=== PATIENT | female | born 1935 | race Caucasian/White ===

== ENCOUNTER 2022-04-01 13:34 | Inpatient (IN) | payer MEDICAID ==
[~2022-04-01] VITALS: Ht 167.6 cm; Wt 101.6 kg
[2022-04-01 13:46] VITALS: BP_SYST 142
[2022-04-01 15:28] LABS: BASOPHILS % (AUTO) 0.1 % (0.0-2.0); HEMATOCRIT 41.7 % (36-48); HEMOGLOBIN 14.1 g/dL (12.0-16.0); LYMPHOCYTES # (AUTO) 1.3 K/uL (1.0-5.5); LYMPHOCYTES % (AUTO) 5.3 % (20.5-51.5); MEAN CORPUSCULAR HEMOGLOBIN 32 pg (27-31); MEAN CORPUSCULAR HGB CONC 34 % (32-36); MEAN CORPUSCULAR VOLUME 94 fL (79.0-98.0); MONOCYTES # (AUTO) 0.8 K/uL (0.0-1.0); MONOCYTES % (AUTO) 3.4 % (1.7-9.3); NEUTROPHILS # (AUTO) 22.7 K/uL (1.8-7.7); NEUTROPHILS % (AUTO) 91.2 % (40.0-70.0); PLATELET COUNT (AUTO) 227 K/uL (130-430); RED BLOOD CELL COUNT(AUTO) 4.45 MIL/uL (4.2-6.2); RED CELL DISTRIBUTION WIDTH 15.7 % (9.0-15.0)
[2022-04-01 15:32] LABS: WHITE BLOOD COUNT (AUTO) 24.9 K/uL (4.8-10.8)
[2022-04-01 15:35] LABS: ANION GAP 12 (5-15); CALCIUM 9.3 mg/dL (8.4-11.0); CHLORIDE 105 mmol/L (98-107); GLUCOSE 167 mg/dL (70-99); UREA NITROGEN, BLOOD 28 mg/dL (8-21)
[2022-04-01 15:39] LABS: ALANINE AMINOTRANSFERASE 31 U/L (12-78); ALBUMIN 2.7 g/dL (3.4-4.8); ASPARTATE AMINOTRANSFERASE 21 U/L (10-37); LIPASE 33 U/L (73-393); TOTAL BILIRUBIN 1.1 mg/dL (0.0-1.0)
[2022-04-01] MEDS ORDERED: PIPERACILLIN/TAZO 3.375 GM in NS 50 ML IV ONE (16:15)
[2022-04-01] MEDS ORDERED: NACL 0.9% 1,000 ML IV ONE ×2 (16:15)
[2022-04-01] MEDS ORDERED: PIPERACILLIN/TAZOBACTAM 3.375 GM/VIAL (ZOSYN) IV ONE (16:25)
[2022-04-01] MEDS ORDERED: QUET50TA PO (16:49)
[2022-04-01] MEDS ORDERED: MELO-89 PO (16:49)
[2022-04-01] MEDS ORDERED: THIA50TA10 PO (16:49)
[2022-04-01] MEDS ORDERED: MEGE400O4 PO (16:49)
[2022-04-01] MEDS ORDERED: LEVO25TA2 PO (16:49)
[2022-04-01] MEDS ORDERED: CYAN100T44 PO (16:49)
[2022-04-01] MEDS ORDERED: SER25 PO (16:49)
[2022-04-01] MEDS ORDERED: LOSA50TA3 PO (16:49)
[2022-04-01] MEDS ORDERED: ALEN10TA25 PO (16:49)
[2022-04-01] MEDS ORDERED: DOCU-144 PO (16:49)
[2022-04-01 17:03] LABS: BILIRUBIN,URINE 2+ (NEGATIVE); BLOOD, URINE NEGATIVE (NEGATIVE); GLUCOSE,URINE TRACE (NEGATIVE); KETONES,URINE NEGATIVE (NEGATIVE); LEUKOCYTE ESTERASE ,URINE TRACE (NEGATIVE); PROTEIN URINE 1+ (NEGATIVE)
[2022-04-01 17:16] LABS: CLARITY/URINE HAZY (CLEAR); COLOR,URINE AMBER (YELLOW); NITRITE, URINE NEGATIVE (NEGATIVE)
[2022-04-01 17:17] LABS: BACTERIA,URINE FEW /HPF (None Seen); MUCUS,URINE None Seen /LPF (None Seen); RBC,URINE 0-3 /HPF (0-3)
[2022-04-01] MEDS ORDERED: VANCOMYCIN HCL 1 GM/NS PREMIX 250 ML IV ONE (21:00)
[2022-04-01] MEDS ORDERED: VANCOMYCIN HCL 1000 MG/VIAL IV ONE (23:19)
[2022-04-01] MEDS: 0.45% NACL 1,000 ML IV SCH (23:31)
[2022-04-01 23:35] VITALS: BP_SYST 116
[2022-04-02] MEDS ORDERED: PIPERACILLIN/TAZOBACTAM 3.375 GM/VIAL (ZOSYN) IV ONE (00:58)
[2022-04-02] MEDS: PIPERACILLIN/TAZO 3.375 GM in NS 50 ML IV SCH ×3 (01:14→18:37)
[2022-04-02] MEDS ORDERED: METOPROLOL SUCCINATE 50 MG TAB.SR.24H (TOPROL XL) PO ONE (02:00)
[2022-04-02] MEDS: METOPROLOL TARTRATE 5 MG/5 ML VIAL IVP PRN ×2 (03:27→09:21)
[2022-04-02] MEDS: MORPHINE 2 MG/ML INJ. SYRINGE IVP PRN ×2 (03:27→10:14)
[2022-04-02] MEDS: 0.45% NACL 1,000 ML IV SCH ×3 (03:45→19:45)
[2022-04-02 08:13] VITALS: BP_SYST 134
[2022-04-02 08:30] LABS: EOSINOPHILS % (AUTO) 0.1 % (0.0-4.0); HEMATOCRIT 38.7 % (36-48); LYMPHOCYTES # (AUTO) 1.4 K/uL (1.0-5.5); LYMPHOCYTES % (AUTO) 7.6 % (20.5-51.5); MEAN CORPUSCULAR HEMOGLOBIN 31 pg (27-31); MEAN CORPUSCULAR HGB CONC 34 % (32-36); MEAN CORPUSCULAR VOLUME 93 fL (79.0-98.0); MONOCYTES # (AUTO) 0.7 K/uL (0.0-1.0); MONOCYTES % (AUTO) 3.8 % (1.7-9.3); NEUTROPHILS # (AUTO) 16.3 K/uL (1.8-7.7); NEUTROPHILS % (AUTO) 88.5 % (40.0-70.0); PLATELET COUNT (AUTO) 201 K/uL (130-430); RED BLOOD CELL COUNT(AUTO) 4.16 MIL/uL (4.2-6.2); RED CELL DISTRIBUTION WIDTH 15.6 % (9.0-15.0); WHITE BLOOD COUNT (AUTO) 18.4 K/uL (4.8-10.8)
[2022-04-02 09:34] LABS: ALANINE AMINOTRANSFERASE 25 U/L (12-78); ALBUMIN 2.2 g/dL (3.4-4.8); ANION GAP 12 (5-15); ASPARTATE AMINOTRANSFERASE 18 U/L (10-37); CALCIUM 8.8 mg/dL (8.4-11.0); CHLORIDE 108 mmol/L (98-107); CREATININE 0.83 mg/dL (0.55-1.30); GLUCOSE 153 mg/dL (70-99); TOTAL BILIRUBIN 1.2 mg/dL (0.0-1.0); UREA NITROGEN, BLOOD 26 mg/dL (8-21)
[2022-04-02] MEDS ORDERED: THIAMINE HCL 100 MG TABLET PO ONE (09:45)
[2022-04-02] MEDS ORDERED: DOCUSATE SODIUM 100 MG CAPSULE PO ONE (09:45)
[2022-04-02] MEDS ORDERED: LEVOTHYROXINE SODIUM 0.025 MG TABLET PO ONE (09:45)
[2022-04-02] MEDS ORDERED: QUEtiapine FUMARATE 25 MG TABLET PO ONE (09:45)
[2022-04-02] MEDS ORDERED: METOPROLOL TARTRATE 25 MG TABLET PO ONE (10:00)
[2022-04-02] MEDS ORDERED: HEPARIN SODIUM,PORCINE 5,000 UNITS/ML VIAL SUBCUT ONE (10:00)
[2022-04-02] MEDS ORDERED: MELOXICAM 7.5 MG TABLET PO ONE (11:30)
[2022-04-02] MEDS ORDERED: LOSARTAN POTASSIUM 50 MG TABLET (COZAAR) PO ONE (11:30)
[2022-04-02 11:34] VITALS: BP_SYST 103
[2022-04-02 11:52] LABS: INR 1.3 (0.8-1.2); PROTHROMBIN TIME 12.7 SECS (9.5-12.5)
[2022-04-02] MEDS ORDERED: POTASSIUM CHLORIDE 20 MEQ/PKT PACKET PO ONE (13:30)
[2022-04-02 16:56] VITALS: BP_SYST 105
[2022-04-02 20:00] VITALS: BP_SYST 124
[2022-04-02] MEDS: DOCUSATE SODIUM 100 MG CAPSULE PO SCH (21:09)
[2022-04-02] MEDS: METOPROLOL TARTRATE 25 MG TABLET PO SCH (21:09)
[2022-04-02] MEDS: QUEtiapine FUMARATE 25 MG TABLET PO SCH (21:10)
[2022-04-02] MEDS: HEPARIN SODIUM,PORCINE 5,000 UNITS/ML VIAL SUBCUT SCH (21:14)
[2022-04-03] MEDS: PIPERACILLIN/TAZO 3.375 GM in NS 50 ML IV SCH ×3 (01:14→17:24)
[2022-04-03 01:35] VITALS: BP_SYST 105
[2022-04-03] MEDS: VANCOMYCIN HCL 1,250 MG in NS 250 ML IV SCH ×2 (01:52→23:39)
[2022-04-03] MEDS: 0.45% NACL 1,000 ML IV SCH ×3 (04:09→21:55)
[2022-04-03] MEDS: FOSAMAX 70 MG PO SCH (06:00)
[2022-04-03 06:26] LABS: BASOPHILS % (AUTO) 0.1 % (0.0-2.0); EOSINOPHILS # (AUTO) 0.1 K/uL (0.0-0.4); EOSINOPHILS % (AUTO) 1.1 % (0.0-4.0); HEMATOCRIT 36.2 % (36-48); HEMOGLOBIN 12.4 g/dL (12.0-16.0); LYMPHOCYTES # (AUTO) 1.2 K/uL (1.0-5.5); LYMPHOCYTES % (AUTO) 12.2 % (20.5-51.5); MEAN CORPUSCULAR HEMOGLOBIN 32 pg (27-31); MEAN CORPUSCULAR HGB CONC 34 % (32-36); MEAN CORPUSCULAR VOLUME 92 fL (79.0-98.0); MONOCYTES # (AUTO) 0.6 K/uL (0.0-1.0); MONOCYTES % (AUTO) 6.5 % (1.7-9.3); NEUTROPHILS # (AUTO) 7.9 K/uL (1.8-7.7); NEUTROPHILS % (AUTO) 80.1 % (40.0-70.0); PLATELET COUNT (AUTO) 173 K/uL (130-430); RED BLOOD CELL COUNT(AUTO) 3.92 MIL/uL (4.2-6.2); RED CELL DISTRIBUTION WIDTH 15.2 % (9.0-15.0); WHITE BLOOD COUNT (AUTO) 9.9 K/uL (4.8-10.8)
[2022-04-03] MEDS: LEVOTHYROXINE SODIUM 0.025 MG TABLET PO SCH (06:28)
[2022-04-03 06:29] LABS: ALANINE AMINOTRANSFERASE 19 U/L (12-78); ALBUMIN 1.9 g/dL (3.4-4.8); ANION GAP 11 (5-15); ASPARTATE AMINOTRANSFERASE 17 U/L (10-37); CALCIUM 8.5 mg/dL (8.4-11.0); CHLORIDE 109 mmol/L (98-107); CHOLESTEROL 87 mg/dL (<200); CREATININE 0.75 mg/dL (0.55-1.30); GLUCOSE 133 mg/dL (70-99); HDL CHOLESTEROL 25 mg/dL (>55); THYROID STIMULATING HORMONE 1.61 uIu/mL (0.34-4.82); TOTAL BILIRUBIN 0.9 mg/dL (0.0-1.0); TRIGLYCERIDES 76 mg/dL (30-150); UREA NITROGEN, BLOOD 30 mg/dL (8-21)
[2022-04-03 07:51] LABS: LIPASE 56 U/L (73-393)
[2022-04-03 08:01] VITALS: BP_SYST 115
[2022-04-03] MEDS ORDERED: KCL 40 mEq in 100 mL (PREMIX) 100 ML IV ONE (08:22)
[2022-04-03] MEDS: THIAMINE HCL 100 MG TABLET PO SCH (09:00)
[2022-04-03] MEDS: LOSARTAN POTASSIUM 50 MG TABLET (COZAAR) PO SCH (09:00)
[2022-04-03] MEDS: DOCUSATE SODIUM 100 MG CAPSULE PO SCH ×2 (09:00→22:02)
[2022-04-03] MEDS: QUEtiapine FUMARATE 25 MG TABLET PO SCH ×2 (09:00→22:03)
[2022-04-03] MEDS: METOPROLOL TARTRATE 25 MG TABLET PO SCH ×2 (09:00→22:02)
[2022-04-03] MEDS ORDERED: MELOXICAM 7.5 MG TABLET PO SCH (09:00)
[2022-04-03] MEDS: HEPARIN SODIUM,PORCINE 5,000 UNITS/ML VIAL SUBCUT SCH ×2 (09:38→22:15)
[2022-04-03 10:06] LABS: AFP, TUMOR MARKER 2.1 ng/mL (0.0-8.7); CANCER AG, 125 61.8 U/mL (0.0-38.1); CARBOHYDRATE AG 19-9 <2 U/mL (0-35)
[2022-04-03] MEDS ORDERED: LORazepam 2 MG/ML VIAL IVP ONE (11:30)
[2022-04-03 11:34] VITALS: BP_SYST 127
[2022-04-03 12:00] VITALS: BP_SYST 124
[2022-04-03 16:00] VITALS: BP_SYST 118
[2022-04-03 20:00] VITALS: BP_SYST 105; BP_SYST 131
[2022-04-04] VITALS (10 sets, daily range): BP systolic 117–167
[2022-04-04] MEDS: MORPHINE 2 MG/ML INJ. SYRINGE IVP PRN ×3 (01:48→20:16)
[2022-04-04] MEDS: PIPERACILLIN/TAZO 3.375 GM in NS 50 ML IV SCH ×3 (02:06→18:00)
[2022-04-04] MEDS: 0.45% NACL 1,000 ML IV SCH ×2 (05:21→11:45)
[2022-04-04] MEDS: LEVOTHYROXINE SODIUM 0.025 MG TABLET PO SCH (06:27)
[2022-04-04] MEDS: LOSARTAN POTASSIUM 50 MG TABLET (COZAAR) PO SCH (08:27)
[2022-04-04] MEDS: METOPROLOL TARTRATE 25 MG TABLET PO SCH ×2 (08:27→20:01)
[2022-04-04] MEDS: THIAMINE HCL 100 MG TABLET PO SCH (08:27)
[2022-04-04] MEDS: DOCUSATE SODIUM 100 MG CAPSULE PO SCH ×2 (08:28→20:00)
[2022-04-04] MEDS: QUEtiapine FUMARATE 25 MG TABLET PO SCH ×2 (08:28→20:01)
[2022-04-04] MEDS: HEPARIN SODIUM,PORCINE 5,000 UNITS/ML VIAL SUBCUT SCH ×2 (08:33→21:25)
[2022-04-04] MEDS ORDERED: IPRATROPIUM/ALBUTEROL SULFATE 3 ML AMPUL.NEB (DUONEB) INH PRN (09:00)
[2022-04-04 09:10] LABS: BASOPHILS % (AUTO) 0.4 % (0.0-2.0); EOSINOPHILS # (AUTO) 0.2 K/uL (0.0-0.4); EOSINOPHILS % (AUTO) 1.8 % (0.0-4.0); HEMATOCRIT 40.7 % (36-48); HEMOGLOBIN 13.4 g/dL (12.0-16.0); LYMPHOCYTES # (AUTO) 1.9 K/uL (1.0-5.5); LYMPHOCYTES % (AUTO) 19.3 % (20.5-51.5); MEAN CORPUSCULAR HEMOGLOBIN 31 pg (27-31); MEAN CORPUSCULAR HGB CONC 33 % (32-36); MEAN CORPUSCULAR VOLUME 95 fL (79.0-98.0); MONOCYTES # (AUTO) 0.7 K/uL (0.0-1.0); MONOCYTES % (AUTO) 7.6 % (1.7-9.3); NEUTROPHILS % (AUTO) 70.9 % (40.0-70.0); PLATELET COUNT (AUTO) 188 K/uL (130-430); RED BLOOD CELL COUNT(AUTO) 4.29 MIL/uL (4.2-6.2); RED CELL DISTRIBUTION WIDTH 15.5 % (9.0-15.0); WHITE BLOOD COUNT (AUTO) 9.9 K/uL (4.8-10.8)
[2022-04-04 09:15] LABS: ANION GAP 10 (5-15); CHLORIDE 109 mmol/L (98-107); CREATININE 0.66 mg/dL (0.55-1.30); GLUCOSE 127 mg/dL (70-99); UREA NITROGEN, BLOOD 19 mg/dL (8-21)
[2022-04-04] MEDS ORDERED: IPRATROPIUM/ALBUTEROL SULFATE 3 ML AMPUL.NEB (DUONEB) INH ONE (14:00)
[2022-04-04] MEDS ORDERED: iohexoL 350 mgI/mL, 100 ML INFUS..BTL IV ONE (14:24)
[2022-04-04] MEDS ORDERED: POTASSIUM CHLORIDE 20 MEQ TAB.PRT.SR PO ONE (15:15)
[2022-04-04] MEDS ORDERED: levalbuterol HCL 0.63 MG/3 ML VIAL.NEB INH PRN (15:15)
[2022-04-04 17:06] LABS: TOTAL BILIRUBIN 0.7 mg/dL (0.0-1.0)
[2022-04-04] MEDS ORDERED: METOPROLOL TARTRATE 5 MG/5 ML VIAL IVP PRN (17:30)
[2022-04-04] MEDS ORDERED: FUROSEMIDE 20 MG/2 ML VIAL IVP ONE (17:30)
[2022-04-04 17:35] LABS: BILIRUBIN,DIRECT 0.3 mg/dL (0.0-0.3)
[2022-04-04] MEDS ORDERED: levalbuterol HCL 0.63 MG/3 ML VIAL.NEB INH ONE (18:00)
[2022-04-04] MEDS ORDERED: IPRATROPIUM/ALBUTEROL SULFATE 3 ML AMPUL.NEB (DUONEB) INH SCH (19:00)
[2022-04-05] VITALS (24 sets, daily range): BP systolic 80–141
[2022-04-05] MEDS: levalbuterol HCL 0.63 MG/3 ML VIAL.NEB INH SCH ×3 (01:00→12:13)
[2022-04-05] MEDS: PIPERACILLIN/TAZO 3.375 GM in NS 50 ML IV SCH ×3 (01:40→17:39)
[2022-04-05] MEDS: 0.45% NACL 1,000 ML IV SCH ×2 (01:41→22:15)
[2022-04-05] MEDS: LEVOTHYROXINE SODIUM 0.025 MG TABLET PO SCH (06:23)
[2022-04-05 07:06] LABS: BASOPHILS % (AUTO) 0.5 % (0.0-2.0); EOSINOPHILS # (AUTO) 0.3 K/uL (0.0-0.4); EOSINOPHILS % (AUTO) 3.1 % (0.0-4.0); HEMOGLOBIN 12.3 g/dL (12.0-16.0); LYMPHOCYTES # (AUTO) 1.9 K/uL (1.0-5.5); LYMPHOCYTES % (AUTO) 20.1 % (20.5-51.5); MEAN CORPUSCULAR HEMOGLOBIN 31 pg (27-31); MEAN CORPUSCULAR HGB CONC 33 % (32-36); MEAN CORPUSCULAR VOLUME 94 fL (79.0-98.0); MONOCYTES # (AUTO) 0.9 K/uL (0.0-1.0); MONOCYTES % (AUTO) 9.6 % (1.7-9.3); NEUTROPHILS # (AUTO) 6.1 K/uL (1.8-7.7); NEUTROPHILS % (AUTO) 66.7 % (40.0-70.0); PLATELET COUNT (AUTO) 227 K/uL (130-430); RED BLOOD CELL COUNT(AUTO) 3.94 MIL/uL (4.2-6.2); RED CELL DISTRIBUTION WIDTH 15.4 % (9.0-15.0); WHITE BLOOD COUNT (AUTO) 9.2 K/uL (4.8-10.8)
[2022-04-05 08:15] LABS: ALANINE AMINOTRANSFERASE 22 U/L (12-78); ANION GAP 9 (5-15); ASPARTATE AMINOTRANSFERASE 18 U/L (10-37); CHLORIDE 110 mmol/L (98-107); CREATININE 0.62 mg/dL (0.55-1.30); GLUCOSE 141 mg/dL (70-99); TOTAL BILIRUBIN 0.6 mg/dL (0.0-1.0); UREA NITROGEN, BLOOD 16 mg/dL (8-21)
[2022-04-05] MEDS ORDERED: FUROSEMIDE 20 MG/2 ML VIAL IVP ONE (08:45)
[2022-04-05] MEDS ORDERED: METOPROLOL TARTRATE 25 MG TABLET PO ONE (09:00)
[2022-04-05] MEDS: HEPARIN SODIUM,PORCINE 5,000 UNITS/ML VIAL SUBCUT SCH ×2 (09:00→22:06)
[2022-04-05] MEDS: QUEtiapine FUMARATE 25 MG TABLET PO SCH ×2 (09:07→22:05)
[2022-04-05] MEDS: THIAMINE HCL 100 MG TABLET PO SCH (09:07)
[2022-04-05] MEDS: LOSARTAN POTASSIUM 50 MG TABLET (COZAAR) PO SCH (09:07)
[2022-04-05] MEDS: DOCUSATE SODIUM 100 MG CAPSULE PO SCH ×2 (09:07→22:05)
[2022-04-05] MEDS: METOPROLOL TARTRATE 25 MG TABLET PO SCH (22:04)
[2022-04-06] VITALS (20 sets, daily range): BP systolic 98–162
[2022-04-06] MEDS: levalbuterol HCL 0.63 MG/3 ML VIAL.NEB INH SCH ×4 (00:16→19:00)
[2022-04-06] MEDS: PIPERACILLIN/TAZO 3.375 GM in NS 50 ML IV SCH ×3 (03:07→20:10)
[2022-04-06] MEDS: LEVOTHYROXINE SODIUM 0.088 MG TABLET PO SCH (07:36)
[2022-04-06 08:01] LABS: BASOPHILS # (AUTO) 0.1 K/uL (0.0-0.2); BASOPHILS % (AUTO) 1.1 % (0.0-2.0); EOSINOPHILS # (AUTO) 0.3 K/uL (0.0-0.4); EOSINOPHILS % (AUTO) 2.4 % (0.0-4.0); HEMOGLOBIN 13.1 g/dL (12.0-16.0); LYMPHOCYTES # (AUTO) 3.2 K/uL (1.0-5.5); LYMPHOCYTES % (AUTO) 28.4 % (20.5-51.5); MEAN CORPUSCULAR HEMOGLOBIN 33 pg (27-31); MEAN CORPUSCULAR HGB CONC 35 % (32-36); MEAN CORPUSCULAR VOLUME 94 fL (79.0-98.0); MONOCYTES # (AUTO) 0.9 K/uL (0.0-1.0); MONOCYTES % (AUTO) 7.5 % (1.7-9.3); NEUTROPHILS # (AUTO) 6.9 K/uL (1.8-7.7); NEUTROPHILS % (AUTO) 60.6 % (40.0-70.0); PLATELET COUNT (AUTO) 274 K/uL (130-430); RED BLOOD CELL COUNT(AUTO) 4.04 MIL/uL (4.2-6.2); RED CELL DISTRIBUTION WIDTH 15.8 % (9.0-15.0); WHITE BLOOD COUNT (AUTO) 11.4 K/uL (4.8-10.8)
[2022-04-06] MEDS: QUEtiapine FUMARATE 25 MG TABLET PO SCH ×3 (09:00→20:31)
[2022-04-06] MEDS: LOSARTAN POTASSIUM 50 MG TABLET (COZAAR) PO SCH ×2 (09:00→09:37)
[2022-04-06] MEDS: HEPARIN SODIUM,PORCINE 5,000 UNITS/ML VIAL SUBCUT SCH ×3 (09:00→20:32)
[2022-04-06] MEDS: THIAMINE HCL 100 MG TABLET PO SCH ×2 (09:00→09:37)
[2022-04-06] MEDS: DOCUSATE SODIUM 100 MG CAPSULE PO SCH ×2 (09:00→20:30)
[2022-04-06] MEDS: METOPROLOL TARTRATE 25 MG TABLET PO SCH ×3 (09:00→20:30)
[2022-04-06] MEDS ORDERED: DILTIAZEM HCL 240 MG CAP.SR.24H PO ONE (11:45)
[2022-04-06 17:24] LABS: ANION GAP 11 (5-15); CALCIUM 8.1 mg/dL (8.4-11.0); CHLORIDE 110 mmol/L (98-107); CREATININE 0.67 mg/dL (0.55-1.30); GLUCOSE 139 mg/dL (70-99); UREA NITROGEN, BLOOD 10 mg/dL (8-21)
[2022-04-06] MEDS: 0.45% NACL 1,000 ML IV SCH (20:29)
[2022-04-07] VITALS (24 sets, daily range): BP systolic 104–146
[2022-04-07] MEDS: levalbuterol HCL 0.63 MG/3 ML VIAL.NEB INH SCH ×4 (00:59→19:00)
[2022-04-07] MEDS: PIPERACILLIN/TAZO 3.375 GM in NS 50 ML IV SCH ×3 (02:23→17:42)
[2022-04-07] MEDS: LEVOTHYROXINE SODIUM 0.088 MG TABLET PO SCH (06:26)
[2022-04-07] MEDS: QUEtiapine FUMARATE 25 MG TABLET PO SCH ×2 (08:23→20:20)
[2022-04-07] MEDS: THIAMINE HCL 100 MG TABLET PO SCH (08:23)
[2022-04-07] MEDS: DILTIAZEM HCL 240 MG CAP.SR.24H PO SCH (08:23)
[2022-04-07] MEDS: METOPROLOL TARTRATE 25 MG TABLET PO SCH ×2 (08:23→20:20)
[2022-04-07] MEDS: HEPARIN SODIUM,PORCINE 5,000 UNITS/ML VIAL SUBCUT SCH ×2 (08:24→20:25)
[2022-04-07] MEDS: LOSARTAN POTASSIUM 50 MG TABLET (COZAAR) PO SCH (08:25)
[2022-04-07] MEDS: DOCUSATE SODIUM 100 MG CAPSULE PO SCH ×2 (08:25→20:20)
[2022-04-07 08:41] LABS: ANION GAP 9 (5-15); CALCIUM 8.1 mg/dL (8.4-11.0); CHLORIDE 109 mmol/L (98-107); CREATININE 0.68 mg/dL (0.55-1.30); GLUCOSE 128 mg/dL (70-99); UREA NITROGEN, BLOOD 9 mg/dL (8-21)
[2022-04-07] MEDS: 0.45% NACL 1,000 ML IV SCH (15:38)
[2022-04-07 18:23] LABS: BASOPHILS # (AUTO) 0.1 K/uL (0.0-0.2); BASOPHILS % (AUTO) 0.7 % (0.0-2.0); EOSINOPHILS # (AUTO) 0.2 K/uL (0.0-0.4); HEMATOCRIT 37.8 % (36-48); HEMOGLOBIN 12.7 g/dL (12.0-16.0); LYMPHOCYTES # (AUTO) 2.1 K/uL (1.0-5.5); LYMPHOCYTES % (AUTO) 24.1 % (20.5-51.5); MEAN CORPUSCULAR HEMOGLOBIN 32 pg (27-31); MEAN CORPUSCULAR HGB CONC 34 % (32-36); MEAN CORPUSCULAR VOLUME 95 fL (79.0-98.0); MONOCYTES # (AUTO) 0.6 K/uL (0.0-1.0); MONOCYTES % (AUTO) 6.3 % (1.7-9.3); NEUTROPHILS % (AUTO) 66.9 % (40.0-70.0); PLATELET COUNT (AUTO) 213 K/uL (130-430); RED CELL DISTRIBUTION WIDTH 15.4 % (9.0-15.0); WHITE BLOOD COUNT (AUTO) 8.9 K/uL (4.8-10.8)
[2022-04-07] MEDS: NACL 0.9% 1,000 ML IV SCH (20:21)
[2022-04-08] VITALS (23 sets, daily range): BP systolic 97–158
[2022-04-08] MEDS: PIPERACILLIN/TAZO 3.375 GM in NS 50 ML IV SCH ×3 (02:00→18:49)
[2022-04-08] MEDS: levalbuterol HCL 0.63 MG/3 ML VIAL.NEB INH SCH ×5 (03:20→23:17)
[2022-04-08] MEDS: LEVOTHYROXINE SODIUM 0.088 MG TABLET PO SCH (05:53)
[2022-04-08] MEDS: NACL 0.9% 1,000 ML IV SCH ×2 (06:15→16:15)
[2022-04-08 07:01] LABS: BASOPHILS % (AUTO) 0.6 % (0.0-2.0); EOSINOPHILS # (AUTO) 0.2 K/uL (0.0-0.4); EOSINOPHILS % (AUTO) 2.7 % (0.0-4.0); HEMATOCRIT 38.4 % (36-48); HEMOGLOBIN 13.1 g/dL (12.0-16.0); LYMPHOCYTES # (AUTO) 1.7 K/uL (1.0-5.5); LYMPHOCYTES % (AUTO) 21.1 % (20.5-51.5); MEAN CORPUSCULAR HEMOGLOBIN 32 pg (27-31); MEAN CORPUSCULAR HGB CONC 34 % (32-36); MEAN CORPUSCULAR VOLUME 94 fL (79.0-98.0); MONOCYTES # (AUTO) 0.6 K/uL (0.0-1.0); MONOCYTES % (AUTO) 7.1 % (1.7-9.3); NEUTROPHILS # (AUTO) 5.6 K/uL (1.8-7.7); NEUTROPHILS % (AUTO) 68.5 % (40.0-70.0); PLATELET COUNT (AUTO) 217 K/uL (130-430); RED BLOOD CELL COUNT(AUTO) 4.11 MIL/uL (4.2-6.2); RED CELL DISTRIBUTION WIDTH 15.2 % (9.0-15.0); WHITE BLOOD COUNT (AUTO) 8.2 K/uL (4.8-10.8)
[2022-04-08 07:56] LABS: ANION GAP 12 (5-15); CALCIUM 8.4 mg/dL (8.4-11.0); CHLORIDE 109 mmol/L (98-107); CREATININE 0.66 mg/dL (0.55-1.30); GLUCOSE 147 mg/dL (70-99); UREA NITROGEN, BLOOD 9 mg/dL (8-21)
[2022-04-08] MEDS: HEPARIN SODIUM,PORCINE 5,000 UNITS/ML VIAL SUBCUT SCH ×2 (09:00→20:09)
[2022-04-08] MEDS: DILTIAZEM HCL 240 MG CAP.SR.24H PO SCH (09:00)
[2022-04-08] MEDS: QUEtiapine FUMARATE 25 MG TABLET PO SCH ×2 (09:00→20:02)
[2022-04-08] MEDS: METOPROLOL TARTRATE 25 MG TABLET PO SCH ×2 (09:00→20:03)
[2022-04-08] MEDS: DOCUSATE SODIUM 100 MG CAPSULE PO SCH ×2 (09:00→20:02)
[2022-04-08] MEDS: THIAMINE HCL 100 MG TABLET PO SCH (09:00)
[2022-04-08] MEDS: LOSARTAN POTASSIUM 50 MG TABLET (COZAAR) PO SCH (09:00)
[2022-04-08] MEDS ORDERED: MENTHOL/ZINC OXIDE 113 GM OINT. TP PRN (17:00)
[2022-04-09] VITALS (23 sets, daily range): BP systolic 97–154
[2022-04-09] MEDS: NACL 0.9% 1,000 ML IV SCH ×2 (02:15→06:21)
[2022-04-09] MEDS: PIPERACILLIN/TAZO 3.375 GM in NS 50 ML IV SCH ×3 (02:28→18:27)
[2022-04-09] MEDS: LEVOTHYROXINE SODIUM 0.088 MG TABLET PO SCH (06:12)
[2022-04-09] MEDS: levalbuterol HCL 0.63 MG/3 ML VIAL.NEB INH SCH ×3 (07:16→19:45)
[2022-04-09] MEDS: DOCUSATE SODIUM 100 MG CAPSULE PO SCH ×2 (08:46→21:32)
[2022-04-09] MEDS: DILTIAZEM HCL 240 MG CAP.SR.24H PO SCH (08:47)
[2022-04-09] MEDS: THIAMINE HCL 100 MG TABLET PO SCH (08:48)
[2022-04-09] MEDS: METOPROLOL TARTRATE 25 MG TABLET PO SCH ×2 (08:48→21:32)
[2022-04-09] MEDS: QUEtiapine FUMARATE 25 MG TABLET PO SCH ×2 (08:48→21:40)
[2022-04-09] MEDS: LOSARTAN POTASSIUM 50 MG TABLET (COZAAR) PO SCH (08:48)
[2022-04-09] MEDS: HEPARIN SODIUM,PORCINE 5,000 UNITS/ML VIAL SUBCUT SCH ×2 (08:54→21:33)
[2022-04-10] VITALS (25 sets, daily range): BP systolic 92–150
[2022-04-10] MEDS: levalbuterol HCL 0.63 MG/3 ML VIAL.NEB INH SCH ×3 (01:00→19:00)
[2022-04-10] MEDS: PIPERACILLIN/TAZO 3.375 GM in NS 50 ML IV SCH ×3 (01:27→17:15)
[2022-04-10] MEDS: FOSAMAX 70 MG PO SCH (06:38)
[2022-04-10] MEDS: LEVOTHYROXINE SODIUM 0.088 MG TABLET PO SCH (06:54)
[2022-04-10] MEDS: DILTIAZEM HCL 240 MG CAP.SR.24H PO SCH (06:55)
[2022-04-10 07:09] LABS: BASOPHILS # (AUTO) 0.1 K/uL (0.0-0.2); BASOPHILS % (AUTO) 0.7 % (0.0-2.0); EOSINOPHILS # (AUTO) 0.2 K/uL (0.0-0.4); EOSINOPHILS % (AUTO) 2.2 % (0.0-4.0); HEMATOCRIT 35.4 % (36-48); HEMOGLOBIN 12.3 g/dL (12.0-16.0); LYMPHOCYTES # (AUTO) 1.8 K/uL (1.0-5.5); MEAN CORPUSCULAR HEMOGLOBIN 33 pg (27-31); MEAN CORPUSCULAR HGB CONC 35 % (32-36); MEAN CORPUSCULAR VOLUME 95 fL (79.0-98.0); MONOCYTES # (AUTO) 0.6 K/uL (0.0-1.0); MONOCYTES % (AUTO) 6.2 % (1.7-9.3); NEUTROPHILS # (AUTO) 7.4 K/uL (1.8-7.7); NEUTROPHILS % (AUTO) 72.9 % (40.0-70.0); PLATELET COUNT (AUTO) 222 K/uL (130-430); RED BLOOD CELL COUNT(AUTO) 3.75 MIL/uL (4.2-6.2); RED CELL DISTRIBUTION WIDTH 15.4 % (9.0-15.0); WHITE BLOOD COUNT (AUTO) 10.2 K/uL (4.8-10.8)
[2022-04-10 07:52] LABS: ANION GAP 10 (5-15); CALCIUM 8.5 mg/dL (8.4-11.0); CHLORIDE 110 mmol/L (98-107); CREATININE 0.65 mg/dL (0.55-1.30); GLUCOSE 148 mg/dL (70-99); UREA NITROGEN, BLOOD 11 mg/dL (8-21)
[2022-04-10] MEDS: DOCUSATE SODIUM 100 MG CAPSULE PO SCH ×2 (08:29→20:48)
[2022-04-10] MEDS: THIAMINE HCL 100 MG TABLET PO SCH (08:30)
[2022-04-10] MEDS: METOPROLOL TARTRATE 25 MG TABLET PO SCH ×2 (08:30→20:49)
[2022-04-10] MEDS: QUEtiapine FUMARATE 25 MG TABLET PO SCH ×2 (08:31→20:48)
[2022-04-10] MEDS: LOSARTAN POTASSIUM 50 MG TABLET (COZAAR) PO SCH (08:31)
[2022-04-10] MEDS: HEPARIN SODIUM,PORCINE 5,000 UNITS/ML VIAL SUBCUT SCH ×2 (08:34→20:52)
[2022-04-11] VITALS (25 sets, daily range): BP systolic 103–148
[2022-04-11] MEDS: levalbuterol HCL 0.63 MG/3 ML VIAL.NEB INH SCH ×4 (01:15→19:35)
[2022-04-11] MEDS: PIPERACILLIN/TAZO 3.375 GM in NS 50 ML IV SCH ×3 (01:48→18:26)
[2022-04-11] MEDS: LEVOTHYROXINE SODIUM 0.088 MG TABLET PO SCH (06:46)
[2022-04-11 08:46] LABS: BASOPHILS # (AUTO) 0.1 K/uL (0.0-0.2); BASOPHILS % (AUTO) 0.6 % (0.0-2.0); EOSINOPHILS # (AUTO) 0.2 K/uL (0.0-0.4); EOSINOPHILS % (AUTO) 1.6 % (0.0-4.0); HEMATOCRIT 39.8 % (36-48); HEMOGLOBIN 13.1 g/dL (12.0-16.0); LYMPHOCYTES # (AUTO) 3.7 K/uL (1.0-5.5); LYMPHOCYTES % (AUTO) 29.9 % (20.5-51.5); MEAN CORPUSCULAR HEMOGLOBIN 32 pg (27-31); MEAN CORPUSCULAR HGB CONC 33 % (32-36); MEAN CORPUSCULAR VOLUME 96 fL (79.0-98.0); MONOCYTES % (AUTO) 7.9 % (1.7-9.3); NEUTROPHILS # (AUTO) 7.5 K/uL (1.8-7.7); PLATELET COUNT (AUTO) 214 K/uL (130-430); RED BLOOD CELL COUNT(AUTO) 4.15 MIL/uL (4.2-6.2); RED CELL DISTRIBUTION WIDTH 15.4 % (9.0-15.0); WHITE BLOOD COUNT (AUTO) 12.5 K/uL (4.8-10.8)
[2022-04-11] MEDS: HEPARIN SODIUM,PORCINE 5,000 UNITS/ML VIAL SUBCUT SCH ×2 (08:49→21:00)
[2022-04-11] MEDS: LOSARTAN POTASSIUM 50 MG TABLET (COZAAR) PO SCH (08:50)
[2022-04-11] MEDS: DOCUSATE SODIUM 100 MG CAPSULE PO SCH ×2 (08:50→21:01)
[2022-04-11] MEDS: DILTIAZEM HCL 240 MG CAP.SR.24H PO SCH (08:50)
[2022-04-11] MEDS: METOPROLOL TARTRATE 25 MG TABLET PO SCH ×2 (08:54→21:01)
[2022-04-11] MEDS: QUEtiapine FUMARATE 25 MG TABLET PO SCH ×2 (08:54→21:01)
[2022-04-11] MEDS: THIAMINE HCL 100 MG TABLET PO SCH (08:55)
[2022-04-11 09:00] LABS: ALANINE AMINOTRANSFERASE 12 U/L (12-78); ANION GAP 10 (5-15); ASPARTATE AMINOTRANSFERASE 18 U/L (10-37); CHLORIDE 110 mmol/L (98-107); CREATININE 0.65 mg/dL (0.55-1.30); GLUCOSE 123 mg/dL (70-99); TOTAL BILIRUBIN 0.6 mg/dL (0.0-1.0); UREA NITROGEN, BLOOD 11 mg/dL (8-21)
[2022-04-11] MEDS: MORPHINE 2 MG/ML INJ. SYRINGE IVP PRN (14:01)
[2022-04-12] VITALS (18 sets, daily range): BP systolic 89–153
[2022-04-12] MEDS: levalbuterol HCL 0.63 MG/3 ML VIAL.NEB INH SCH ×4 (01:00→19:00)
[2022-04-12] MEDS: PIPERACILLIN/TAZO 3.375 GM in NS 50 ML IV SCH ×3 (02:00→17:34)
[2022-04-12 06:12] LABS: BASOPHILS # (AUTO) 0.1 K/uL (0.0-0.2); BASOPHILS % (AUTO) 0.7 % (0.0-2.0); EOSINOPHILS # (AUTO) 0.2 K/uL (0.0-0.4); EOSINOPHILS % (AUTO) 2.9 % (0.0-4.0); HEMATOCRIT 33.5 % (36-48); HEMOGLOBIN 11.3 g/dL (12.0-16.0); LYMPHOCYTES # (AUTO) 1.5 K/uL (1.0-5.5); LYMPHOCYTES % (AUTO) 19.9 % (20.5-51.5); MEAN CORPUSCULAR HEMOGLOBIN 32 pg (27-31); MEAN CORPUSCULAR HGB CONC 34 % (32-36); MEAN CORPUSCULAR VOLUME 93 fL (79.0-98.0); MONOCYTES # (AUTO) 0.6 K/uL (0.0-1.0); NEUTROPHILS # (AUTO) 5.3 K/uL (1.8-7.7); NEUTROPHILS % (AUTO) 68.5 % (40.0-70.0); PLATELET COUNT (AUTO) 218 K/uL (130-430); RED BLOOD CELL COUNT(AUTO) 3.59 MIL/uL (4.2-6.2); RED CELL DISTRIBUTION WIDTH 14.9 % (9.0-15.0); WHITE BLOOD COUNT (AUTO) 7.7 K/uL (4.8-10.8)
[2022-04-12 07:01] LABS: ALANINE AMINOTRANSFERASE 14 U/L (12-78); ALBUMIN 1.7 g/dL (3.4-4.8); ANION GAP 10 (5-15); ASPARTATE AMINOTRANSFERASE 18 U/L (10-37); CALCIUM 8.3 mg/dL (8.4-11.0); CHLORIDE 111 mmol/L (98-107); CREATININE 0.57 mg/dL (0.55-1.30); GLUCOSE 115 mg/dL (70-99); TOTAL BILIRUBIN 0.5 mg/dL (0.0-1.0); UREA NITROGEN, BLOOD 13 mg/dL (8-21)
[2022-04-12] MEDS: DILTIAZEM HCL 240 MG CAP.SR.24H PO SCH (08:23)
[2022-04-12] MEDS: LEVOTHYROXINE SODIUM 0.088 MG TABLET PO SCH (08:24)
[2022-04-12] MEDS: THIAMINE HCL 100 MG TABLET PO SCH (08:24)
[2022-04-12] MEDS: QUEtiapine FUMARATE 25 MG TABLET PO SCH ×2 (08:24→21:27)
[2022-04-12] MEDS: METOPROLOL TARTRATE 25 MG TABLET PO SCH ×2 (08:26→21:27)
[2022-04-12] MEDS: DOCUSATE SODIUM 100 MG CAPSULE PO SCH ×2 (08:26→21:27)
[2022-04-12] MEDS: LOSARTAN POTASSIUM 50 MG TABLET (COZAAR) PO SCH (08:26)
[2022-04-12] MEDS: HEPARIN SODIUM,PORCINE 5,000 UNITS/ML VIAL SUBCUT SCH ×2 (08:32→21:29)
[2022-04-12] MEDS ORDERED: dilTIAZem HCL IVP 5 MG/ML VIAL IVP PRN (11:15)
[2022-04-13] VITALS (20 sets, daily range): BP systolic 92–134
[2022-04-13] MEDS ORDERED: MORPHINE 2 MG/ML INJ. SYRINGE IVP PRN (00:30)
[2022-04-13] MEDS ORDERED: metroNIDAZOLE 500 mg/NS 100 ML IV ONE (00:51)
[2022-04-13] MEDS: metroNIDAZOLE 500 mg/NS 100 ML IV SCH ×3 (00:52→23:37)
[2022-04-13] MEDS: levalbuterol HCL 0.63 MG/3 ML VIAL.NEB INH SCH ×4 (01:00→20:37)
[2022-04-13] MEDS: LEVOTHYROXINE SODIUM 0.088 MG TABLET PO SCH (06:35)
[2022-04-13 06:56] LABS: BASOPHILS # (AUTO) 0.1 K/uL (0.0-0.2); BASOPHILS % (AUTO) 1.2 % (0.0-2.0); EOSINOPHILS # (AUTO) 0.2 K/uL (0.0-0.4); EOSINOPHILS % (AUTO) 3.6 % (0.0-4.0); HEMATOCRIT 32.3 % (36-48); HEMOGLOBIN 11.2 g/dL (12.0-16.0); LYMPHOCYTES # (AUTO) 1.4 K/uL (1.0-5.5); LYMPHOCYTES % (AUTO) 20.5 % (20.5-51.5); MEAN CORPUSCULAR HEMOGLOBIN 32 pg (27-31); MEAN CORPUSCULAR HGB CONC 35 % (32-36); MEAN CORPUSCULAR VOLUME 93 fL (79.0-98.0); MONOCYTES # (AUTO) 0.5 K/uL (0.0-1.0); NEUTROPHILS # (AUTO) 4.5 K/uL (1.8-7.7); NEUTROPHILS % (AUTO) 66.7 % (40.0-70.0); PLATELET COUNT (AUTO) 271 K/uL (130-430); RED BLOOD CELL COUNT(AUTO) 3.47 MIL/uL (4.2-6.2); RED CELL DISTRIBUTION WIDTH 15.1 % (9.0-15.0); WHITE BLOOD COUNT (AUTO) 6.7 K/uL (4.8-10.8)
[2022-04-13 07:03] LABS: ALANINE AMINOTRANSFERASE 12 U/L (12-78); ALBUMIN 1.6 g/dL (3.4-4.8); ANION GAP 8 (5-15); ASPARTATE AMINOTRANSFERASE 14 U/L (10-37); CALCIUM 8.2 mg/dL (8.4-11.0); CHLORIDE 110 mmol/L (98-107); CREATININE 0.54 mg/dL (0.55-1.30); GLUCOSE 120 mg/dL (70-99); TOTAL BILIRUBIN 0.3 mg/dL (0.0-1.0); UREA NITROGEN, BLOOD 12 mg/dL (8-21)
[2022-04-13] MEDS: METOPROLOL TARTRATE 25 MG TABLET PO SCH ×2 (08:53→20:44)
[2022-04-13] MEDS: DILTIAZEM HCL 240 MG CAP.SR.24H PO SCH (08:53)
[2022-04-13] MEDS: THIAMINE HCL 100 MG TABLET PO SCH (08:54)
[2022-04-13] MEDS: QUEtiapine FUMARATE 25 MG TABLET PO SCH ×2 (08:54→20:48)
[2022-04-13] MEDS: LOSARTAN POTASSIUM 50 MG TABLET (COZAAR) PO SCH (08:54)
[2022-04-13] MEDS: HEPARIN SODIUM,PORCINE 5,000 UNITS/ML VIAL SUBCUT SCH ×2 (08:55→20:55)
[2022-04-13] MEDS: DOCUSATE SODIUM 100 MG CAPSULE PO SCH ×2 (08:56→20:48)
[2022-04-13] MEDS: LEVOFLOXACIN 250 MG/D5W 50 ML IV SCH (09:02)
[2022-04-13] MEDS ORDERED: IBUPROFEN 400 MG TABLET PO PRN (11:45)
[2022-04-14] VITALS: BP_SYST 109
[2022-04-14] MEDS: levalbuterol HCL 0.63 MG/3 ML VIAL.NEB INH SCH ×4 (01:00→20:48)
[2022-04-14] MEDS: LEVOTHYROXINE SODIUM 0.088 MG TABLET PO SCH ×2 (06:25→06:40)
[2022-04-14] MEDS: DILTIAZEM HCL 240 MG CAP.SR.24H PO SCH (09:32)
[2022-04-14] MEDS: LOSARTAN POTASSIUM 50 MG TABLET (COZAAR) PO SCH (09:32)
[2022-04-14] MEDS: QUEtiapine FUMARATE 25 MG TABLET PO SCH ×2 (09:33→21:46)
[2022-04-14] MEDS: METOPROLOL TARTRATE 25 MG TABLET PO SCH ×2 (09:33→21:45)
[2022-04-14] MEDS: DOCUSATE SODIUM 100 MG CAPSULE PO SCH ×2 (09:33→21:46)
[2022-04-14] MEDS: THIAMINE HCL 100 MG TABLET PO SCH (09:33)
[2022-04-14] MEDS: HEPARIN SODIUM,PORCINE 5,000 UNITS/ML VIAL SUBCUT SCH ×2 (09:36→22:02)
[2022-04-14] MEDS: LEVOFLOXACIN 250 MG/D5W 50 ML IV SCH (10:47)
[2022-04-14] MEDS: metroNIDAZOLE 500 mg/NS 100 ML IV SCH (10:47)
[2022-04-14 11:16] VITALS: BP_SYST 91
[2022-04-14 15:49] VITALS: BP_SYST 109
[2022-04-14 21:41] VITALS: BP_SYST 119
[2022-04-15] MEDS: levalbuterol HCL 0.63 MG/3 ML VIAL.NEB INH SCH ×4 (01:00→19:00)
[2022-04-15 01:30] VITALS: BP_SYST 131
[2022-04-15] MEDS: LEVOTHYROXINE SODIUM 0.088 MG TABLET PO SCH (06:47)
[2022-04-15] MEDS: THIAMINE HCL 100 MG TABLET PO SCH (11:26)
[2022-04-15] MEDS: metroNIDAZOLE 500 MG TABLET PO SCH ×2 (11:26→21:03)
[2022-04-15] MEDS: LOSARTAN POTASSIUM 50 MG TABLET (COZAAR) PO SCH (11:26)
[2022-04-15 11:27] VITALS: BP_SYST 131
[2022-04-15] MEDS: levoFLOXacin 250 MG TABLET PO SCH (11:27)
[2022-04-15] MEDS: METOPROLOL TARTRATE 25 MG TABLET PO SCH ×2 (11:27→21:09)
[2022-04-15] MEDS: HEPARIN SODIUM,PORCINE 5,000 UNITS/ML VIAL SUBCUT SCH ×2 (11:29→21:26)
[2022-04-15] MEDS: DOCUSATE SODIUM 100 MG CAPSULE PO SCH ×2 (11:30→21:31)
[2022-04-15] MEDS: QUEtiapine FUMARATE 25 MG TABLET PO SCH ×2 (11:33→21:18)
[2022-04-15] MEDS: DILTIAZEM HCL 240 MG CAP.SR.24H PO SCH (11:33)
[2022-04-15 15:42] VITALS: BP_SYST 118
[2022-04-15 16:29] LABS: BASOPHILS % (AUTO) 0.8 % (0.0-2.0); EOSINOPHILS # (AUTO) 0.2 K/uL (0.0-0.4); EOSINOPHILS % (AUTO) 2.9 % (0.0-4.0); HEMATOCRIT 36.9 % (36-48); HEMOGLOBIN 12.3 g/dL (12.0-16.0); LYMPHOCYTES # (AUTO) 1.4 K/uL (1.0-5.5); LYMPHOCYTES % (AUTO) 23.5 % (20.5-51.5); MEAN CORPUSCULAR HEMOGLOBIN 32 pg (27-31); MEAN CORPUSCULAR HGB CONC 33 % (32-36); MEAN CORPUSCULAR VOLUME 95 fL (79.0-98.0); MONOCYTES # (AUTO) 0.7 K/uL (0.0-1.0); MONOCYTES % (AUTO) 11.5 % (1.7-9.3); NEUTROPHILS # (AUTO) 3.7 K/uL (1.8-7.7); NEUTROPHILS % (AUTO) 61.3 % (40.0-70.0); PLATELET COUNT (AUTO) 240 K/uL (130-430); RED CELL DISTRIBUTION WIDTH 15.3 % (9.0-15.0); WHITE BLOOD COUNT (AUTO) 6.1 K/uL (4.8-10.8)
[2022-04-15 16:44] LABS: ANION GAP 9 (5-15); CALCIUM 8.3 mg/dL (8.4-11.0); CHLORIDE 108 mmol/L (98-107); CREATININE 0.56 mg/dL (0.55-1.30); GLUCOSE 118 mg/dL (70-99); UREA NITROGEN, BLOOD 11 mg/dL (8-21)
[2022-04-16] MEDS: levalbuterol HCL 0.63 MG/3 ML VIAL.NEB INH SCH ×3 (01:00→13:00)
[2022-04-16 02:01] VITALS: BP_SYST 89
[2022-04-16] MEDS: LEVOTHYROXINE SODIUM 0.088 MG TABLET PO SCH (06:52)
[2022-04-16 11:06] VITALS: BP_SYST 106
[2022-04-16] MEDS: metroNIDAZOLE 500 MG TABLET PO SCH (11:20)
[2022-04-16] MEDS: DOCUSATE SODIUM 100 MG CAPSULE PO SCH (11:20)
[2022-04-16] MEDS: THIAMINE HCL 100 MG TABLET PO SCH (11:20)
[2022-04-16] MEDS: DILTIAZEM HCL 240 MG CAP.SR.24H PO SCH (11:21)
[2022-04-16] MEDS: levoFLOXacin 250 MG TABLET PO SCH (11:21)
[2022-04-16] MEDS: QUEtiapine FUMARATE 25 MG TABLET PO SCH (11:21)
[2022-04-16] MEDS: METOPROLOL TARTRATE 25 MG TABLET PO SCH (11:25)
[2022-04-16] MEDS: LOSARTAN POTASSIUM 50 MG TABLET (COZAAR) PO SCH (11:26)
[2022-04-16] MEDS: HEPARIN SODIUM,PORCINE 5,000 UNITS/ML VIAL SUBCUT SCH (11:27)
[2022-04-16 13:18] VITALS: BP_SYST 148
== END 2022-04-16 14:05 | DRG 720 ==
LOC: SED 13:34 → STU 19:44 → SIC 04-04 20:29 → STU 04-13 17:13 → SMU 04-14 13:00
PROVIDERS: ADMIT Internal Medicine; ATTEND Internal Medicine
DX: A41.9 Sepsis, unspecified organism (principal); E43 Unspecified severe protein-calorie malnutrition; R18.8 Other ascites; J18.9 Pneumonia, unspecified organism; C22.0 Liver cell carcinoma; K80.01 Calculus of gallbladder with acute cholecystitis with obstruction; G30.9 Alzheimer's disease, unspecified; F02.80 Dementia in other diseases classified elsewhere, unspecified severity, without behavioral disturbance, psychotic disturbance, mood disturbance, and anxiety; K74.60 Unspecified cirrhosis of liver; E03.9 Hypothyroidism, unspecified; E11.9 Type 2 diabetes mellitus without complications; E66.01 Morbid (severe) obesity due to excess calories; I48.91 Unspecified atrial fibrillation; E78.5 Hyperlipidemia, unspecified; F32.9 Major depressive disorder, single episode, unspecified; R65.20 Severe sepsis without septic shock; K57.30 Diverticulosis of large intestine without perforation or abscess without bleeding; I10 Essential (primary) hypertension; N39.0 Urinary tract infection, site not specified; N63.20 Unspecified lump in the left breast, unspecified quadrant; Z20.822 Contact with and (suspected) exposure to COVID-19; Z66 Do not resuscitate; Z74.01 Bed confinement status; Z99.3 Dependence on wheelchair; Z90.710 Acquired absence of both cervix and uterus; Z87.891 Personal history of nicotine dependence; Z86.16 Personal history of COVID-19; Z85.05 Personal history of malignant neoplasm of liver; Z79.899 Other long term (current) drug therapy; Z79.83 Long term (current) use of bisphosphonates; Z79.1 Long term (current) use of non-steroidal anti-inflammatories (NSAID)
CPT/HCPCS: 36415; 36600; 71045; 74160-TC; 76376; 76641; 76700-TC; 76705; 78226; 80048; 80053; 80061; 80076; 80202; 81000; 82105; 82140; 82803-TC; 83605; 83690; 83735; 83880; 84443; 85025; 85610-TC; 86301; 86304; 87040; 87081; 87086; 93005; 93306; 94640; 94760; 96365; 96375; 97110-GP; 97530-GP; 99291; A9537; G0378; J1644; J1940; J1956; J2060; J2270; J2543; J3370; J3480; J3490; J7050; J7060; J7614; Q9967